=== PATIENT | female | born 1950 | race Caucasian/White ===

== ENCOUNTER 2020-09-18 06:09 | Day surgery (SDC) | payer OTHER ==
[2020-09-15 13:31] LABS: Basophils % 0.7 % (0-1.3); Hematocrit 42.3 % (36.0-45.0); Lymphocytes % 25.4 % (15.3-44.8); RBC Red Blood Cell Count 4.57 M/uL (3.86-4.86)
[2020-09-15 13:46] LABS: Potassium 3.9 mmol/L (3.5-5.1)
[2020-09-15 14:10] LABS: Urine Appearance CLEAR (Clear); Urine Bilirubin NEGATIVE (Negative); Urine Blood NEGATIVE (Negative); Urine Color YELLOW (Yellow); Urine Glucose NEGATIVE (Negative); Urine Protein NEGATIVE (Negative); Urine Specific Gravity <=1.005 (1.005-1.030); Urine Urobilinogen 0.2 mg/dL (0.2-1.0)
[2020-09-15 14:24] LABS: Urine Microscopic Reflex NO UMIC
[2020-09-18] MEDS ORDERED: SCOPOLAMINE HYDROBROMIDE PATCH TD ONE (06:49)
[2020-09-18] MEDS ORDERED: CEFAZOLIN/SWI 2gm 2 GM/20 ML SYR ONE (06:49)
[2020-09-18] MEDS ORDERED: Ringers Lactate 1,000 ML IV ONE ×2 (06:49→09:27)
[2020-09-18] MEDS ORDERED: LIDOCAINE 2% MPF 5 ML VIAL ONE (07:20)
[2020-09-18] MEDS ORDERED: propofoL 200 MG/20 ML VIAL IV ONE (07:20)
[2020-09-18] MEDS ORDERED: MIDAZOLAM HCL 2 MG/2 ML INJ ONE (07:20)
[2020-09-18] MEDS ORDERED: KETAMINE HCL 500 MG/5 ML VIAL ONE (07:20)
[2020-09-18] MEDS ORDERED: dexAMETHasone 10 MG/ML VIAL ONE (07:20)
[2020-09-18] MEDS ORDERED: ROCURONIUM 50 MG/5 ML VIAL IV ONE (07:20)
[2020-09-18] MEDS ORDERED: FENTANYL CITR 250 MCG/5 ML ONE (07:20)
[2020-09-18] MEDS ORDERED: NS 0.9% VIAL 10 ML ONE (07:20)
[2020-09-18] MEDS ORDERED: ONDANSETRON 4 MG/2 ML VIAL ONE (07:21)
[2020-09-18] MEDS ORDERED: NA CHLORIDE 0.9% 100 ML IV ONE (07:27)
[2020-09-18] MEDS ORDERED: CEFAZOLIN/SWI 1gm 1 GM/10 ML SYR ONE (07:27)
[2020-09-18] MEDS: VASOPRESSIN 20 UNIT/ML VIAL ONE ×2 (08:18→08:28)
[2020-09-18] MEDS ORDERED: EPHEDRINE SULF 50 MG/ML VIAL ONE (08:23)
[2020-09-18] MEDS ORDERED: MORPHINE 10 MG/ML VIAL ONE (12:02)
[2020-09-18] MEDS ORDERED: ONDANSETRON 4 MG/2 ML VIAL IV PRN (13:17)
[2020-09-18] MEDS ORDERED: PROMETHAZINE INJ 25 MG/ML AMP IV PRN (13:20)
[2020-09-18] MEDS ORDERED: PROMETHAZINE 25 MG TABLET PO PRN (13:20)
[2020-09-18] MEDS ORDERED: Ringers Lactate 1,000 ML IV SCH (14:00)
[2020-09-18 14:08] VITALS: BMI 22.8
[2020-09-18] MEDS: CEFAZOLIN/SWI 1gm 1 GM/10 ML SYR IV SCH (15:53)
[2020-09-18] MEDS: ACETAMINOPHEN 325 MG TABLET PO PRN (16:09)
[2020-09-18] MEDS: MORPHINE 4 MG/ML SYR IV PRN (21:00)
[2020-09-19] MEDS: CEFAZOLIN/SWI 1gm 1 GM/10 ML SYR IV SCH
[2020-09-19] MEDS ORDERED: CEFAZOLIN/SWI 1gm 1 GM/10 ML SYR ONE (00:07)
[2020-09-19] MEDS: ACETAMINOPHEN 325 MG TABLET PO PRN (06:25)
[2020-09-19] MEDS: MORPHINE 4 MG/ML SYR IV PRN (09:03)
[2020-09-19 14:38] VITALS: BP 101/48; TEMP 97.7
[2020-09-19 14:44] VITALS: O2SAT 98
--- NOTE | 2020-09-19 17:07 | OP ---
Date of Procedure: 09/18/2020 Surgeon: Saida Baron MD Culinary Artist: Maggy Winter. Preoperative Diagnoses: Anterior and posterior wall prolapse and occult stress urinary incontinence. Postoperative Diagnoses: Wall prolapse stage II, anterior-posterior compartment defects, leading def ect was wall prolapse, occult stress urinary incontinence, apical and posterior enterocele. Procedures Performed: Anterior repair with biologic graft and bilateral sacrospinous ligament fixati on, colpopexy through the anterior access, posterior repair, posterior enterocele repair, apical ente rocele repair perineorrhaphy, mid urethral sling through the transobturator approach (TVTO), cystosco py. Estimated Blood Loss: 100. Urine Output: 400. Anesthesia: General. Specimens: No specimens. Complications: No complications. Drains: Hwang catheter left in place and vaginal packing. Patient's Condition: Stable. Findings: POP-Q is as follows: -1, +1, 0, 5, moderate 7, 0+ 1, and nonapplicable. The anterior rep air was done with the biologic graft. Two Prolene sutures at the sacrospinous ligament and at the ap ex in the center. Three 2-0 Prolenes and 2 PDS sutures on the white line of the Capio and 3 PDS sutu res on the distal most anterior wall close to the urethrovesical junction. The posterior and anterio r wall were slightly trimmed and apical enterocele repair was done with a 3-0 Vicryl, posterior enter ocele repair done and the proximal rectovaginal septum was attempted to be reattached to the apex, ho wever, there was still a small apical posterior defect left due to the inability of rectovaginal sept um to be pulled as high as the sacrospinous towards the apex. However, there was satisfactory reduct ion of the posterior wall prolapse and excellent repair of the perineal body. Indications: The patient is a 69-year-old female with symptomatic vaginal prolapse, declined pessary and conservative management. She has tried Kegel's and pelvic floor muscle therapy . She decided to proceed with medical management. She has had a history of bulging for a little while and would like to get the prolapse surgically resolved. She was referred to me by Carissa Silva. Blood d some recurrent bladder infections, emptying difficulty and vaginal pressure . Did have s ome urgency symptoms. No fecal incontinence. Urodynamics were done, she was found to have occult PETER. We discussed about the mid urethral sling a nd she understood that this was synthetic sling. Biologic anterior repair versus sacral colpopexy wi th mesh were all reviewed. The patient wanted to proceed with a vaginal repair and she was taken to the OR. In the preop, her consent was redone and her and daughter were present. Description Of Procedure: After questions and answers were down satisfactorily, she was taken back. 2 g of Ancef were given. Placed in a supine fashion on the operating table. General anesthesia was given. She was placed in a dorsal lithotomy position using Slick stirrups. The vaginal exam was pe rformed and POP-Q as dictated in the findings. Lower abdomen, vulva, vagina, and perineum were prepp ed and draped in a sterile fashion. Hwang was placed to drain the bladder and retracted superiorly a fter clamping it. The anterior vaginal wall was picked up at 1 cm proximal to the urethrovesical janak ction. Then, at the vaginal vault, it was clear that the vault was the leading part of the prolapse. Then midline dilute vasopressin was injected. Incision was made, extended all the way to the super ior and proximal most aspects of the anterior wall. Bladder was dissected off. Paravaginal space wa s accessed on both sides. The sacrospinous ligament was dissected after reaching the ischial spine e ntering the pararectal space. By sweeping medial and posterior to the ischial spine, the sacrospinou s ligament complex was identified and isolated. Similar dissection on the opposite side as well. Th e bladder was taken off and it was very obvious that there was an apical enterocele. The apical ente rocele was dissected to the level of the vaginal apex as marked by the scar from the vaginal cuff. T hen here the enterocele was closed with the help of a 3-0 Vicryl in a pursestring fashion to reduce t his. The anterior wall was reattached to the vaginal apex. The bladder was dissected all the way do wn to the bladder neck. The fascia at the bladder neck was identified and this was the area to be sutured to the distal part of the biologic graft. The biologic graft was fashioned 8 cm interspinous anterior-posterior lying a t 6 cm, the distal margin at 5 cm. Three Prolene sutures were placed 2-0 at the apex and the center o n each side to tack the graft to the vaginal apex proximally and then the sacrospinous sutures with t he Capio were placed on the sacrospinous ligament 2 cm medial to the medial and posterior to the isch ial spine. These 2 Prolene sutures were attached with to either sides of the long end with a yaz stitch. The Prolene sutures were tied down. Then, the sacrospinous ligament sutures were also tied down. Two PDS sutures were placed with the Capio on the white line, 1 on each side about a centimete r and half from the ischial spine symmetrically on both sides. Then, these were not passed yet. The distal margin attachment was made. After measuring out at 6 cm, I had to trim it probably slightly. Three PDS sutures were placed in the midline to reattach to the pubocervical fascia whatever was le ft behind up through the connective tissue to the graft. Once this was done, the entire anterior com partment had excellent lift and support. The PDS sutures from the white line were attached at a prop er places on the vaginal graft after all these were fixed. Once these were tied down, the vaginal ep ithelium was trimmed with a Catherine clamp and then sutured with a 2-0 Vicryl in a continuous running lo cked fashion. Posterior compartment defect was repaired next. Allis clamps were placed at the level of the hymenal remnant. There was a small hymenal tag that had to be removed. Once this was done, then the sas sql developer ior compartment was injected with dilute vasopressin. The distal 1/3 was excised with a jossue-shap ed incision using a scalpel. Once the rectovaginal septum was exposed, the entire posterior compartm ent and rectovaginal septum were dissected away from the vaginal epithelium superiorly and laterally, also at the perineal body extending the incision to the perineum. The lateral aspects of the deep t ransverse perineum were all exposed. There was significant amount of scarring, however, the exposure was adequate. Then, all the way up and after the rectovaginal septum, at least about 5 cm of it was condensed and it was clear that there was a large posterior enterocele. Detachment from the apex wa s clear. So, the enterocele was repaired with the help of a pursestring suture to reduce it. Then, the rectovaginal septum or whatever the connective tissue was left was sutured to the apex or as high as possible with the help of a continuous running 2-0 PDS suture. Once this was done and there was good decompression of the posterior compartment, the levators there was 1 suture that I placed from s dane-to-side to pull it together. Then, perineal body reconstruction was done with a finger in the re ctum as well as the vagina. Three sutures were placed to bring this together. The gloves were holloway ed. All these sutures were tied together. There was excellent support and perineal body reconstruct ion. The genital hiatus was down to 3.5 cm. The posterior compartment trimmed the vaginal wall slightly laterally on the left side and then close d by pull-down technique. The vaginal epithelium was closed with the help of 2-0 Vicryl in a continu ous running horizontal mattress fashion from [id number] and the perineum was closed with the help o f 3-0 Vicryl in a subcutaneous and subcuticular fashion. Rectal exam was performed. No evidence of any trauma to the rectum at the sacrospinous sites or at the level of the perineal repair. Two Allis clamps were placed in the mid urethral area on the sides and injected with dilute vasopress in. A 1 cm incision was made in this area and dissection was performed onto the fascia to the ipsila teral obturator space. Once the obturator membrane was perforated, the track was expanded by pulling up the scissors were opened and then similar dissection on the opposite side as well hugging the inf erior pubic ramus. The wing guide TVTO was opened. The wing guide was placed. The spike was passed at an optimal angle and exited at the point 2 cm lateral to the groin crease at the line and about a centimeter and half above the level of the urethral meatus. Similar pass was taken on the opposite side without any problems. The sling was adjusted with the sosa Mahoney in the center in a tension-free manner. The plastic sheaths were pulled out and then the graft was adjusted and the mesh was cut at the groin incision carefully and the incisions were closed with the help of Dermabond. Central vaginal incision was closed with the help of . The p atient was closed with help of 2-0 Vicryl in a continuous running fashion. Once this was done, then proceeded with cystoscopy. The Hwang was removed. Cystoscopy was performed. There was no evidence o f any trauma or foreign body in the bladder, just the stone that this was seen in the preop cystoscop y. Both ureteric orifices had strong jets of urine from them. Bladder was drained Hwang was replace d. Vaginal packing was placed. The patient was recovered from anesthesia and taken to PACU in stable condition. FRANCIS/SALVATORE Voice ID: [id number] Report ID: [id number]
== END 2020-09-19 14:30 | disposition home or self-care (01) ==
LOC: OR 06:09 → 2ND-WC 11:50 → OR 09-19 14:30
PROVIDERS: ATTEND Obstetrics & Gynecology
PROC: 0USG7ZZ Reposition Vagina, Via Natural or Artificial Opening (ICD-10-PCS; 2020-09-18)
PROC: 0UUF0JZ Supplement Cul-de-sac with Synthetic Substitute, Open Approach (ICD-10-PCS; 2020-09-18)
PROC: 0JQC0ZZ Repair Pelvic Region Subcutaneous Tissue and Fascia, Open Approach (ICD-10-PCS; 2020-09-18)
PROC: 0HQ9XZZ Repair Perineum Skin, External Approach (ICD-10-PCS; 2020-09-18)
PROC: 0TSD0ZZ Reposition Urethra, Open Approach (ICD-10-PCS; principal; 2020-09-18 07:30)
DX: N81.12 Cystocele, lateral (principal); N81.6 Rectocele; N39.3 Stress incontinence (female) (male); I10 Essential (primary) hypertension; E78.00 Pure hypercholesterolemia, unspecified; M81.0 Age-related osteoporosis without current pathological fracture; N95.2 Postmenopausal atrophic vaginitis; N32.81 Overactive bladder; Z20.822 Contact with and (suspected) exposure to COVID-19
CPT/HCPCS: 57288; 57282; 57265; 57267; 85025; 80048; 36415; 86900; 86850; 85610; 86901; 85730; 81003; 94010; U0002; J2704; J2250; J3010; J1100; J0690 ×3; J7120 ×3; J2405

== ENCOUNTER 2022-05-29 11:49 | Emergency (ER) | payer OTHER ==
--- OUTSIDE RECORDS SUMMARY | 2022-05-29 11:52 | XMS REPORT | Continuity of Care Document ---
:1950 Author Organization [facility] t Address [address] [place] [address] Care Team Providers Name Role Phone Miller_S_AH Attending Clinician Unavailable Kalpana-Mbayo_A_AH Attending Clinician Unavailable Miller_S_AH Admitting Clinician Unavailable Kalpana-Mbayo_A_AH Admitting Clinician Unavailable Payers Payer Name Policy Type Policy Number Effective Date Expiration Date S ource [facility] [place] - [id number] 2019 [employer] 00:00:00 (MEDICARE REPLACEMENT/ADVANT AGE - HMO) Problems Condition Condition Condition Status Onset Resolution Last Treating Co mments Source Name Details Category Date Date Treatment Clinician Date Osteoporos Osteoporos Problem Active V ill[facility] is is 1-12 Family 00:00: Practic 00 e Senile Senile Problem Active 2019-03 [facility] purpura Purpura 2-21 Family 00:00: Practic 00 e Fall Fall Problem Active 2019-03 [facility] 0-08 Family 00:00: Practic 00 e Hyperchole Hyperchole Problem Active [facility] sterolemia sterolemia 7-06 Fa farrukh 00:00: Practic 00 e Essential Essential Problem Active Sophie quiana hypertensi Hypertensi 7-06 Fa farrukh on on 00:00: Practic 00 e Allergies, Adverse Reactions, Alerts Allergy Allergy Status Severity Reaction(s) Onset Inactive Treating Comm ents Source Name Type Date Date Clinician PENICILL Allergy Active Severe Anaphylaxis Vi llage INS to Family substanc Practic e e Social History Smoking Status Start Date Stop Date Source Former Smoker [facility] Medications Ordered Filled Start Stop Current Ordering Indication Dosage Frequency Signature Comments Components Source Medication Medication Date Date Medication? Clinician (SIG) Name Name atorvastati atorvastati No 1 Q1D atorvastat [place] n 10 mg n 10 mg in 10 mg Famil y tablet Take tablet Take tablet Practic 1 tablet 1 tablet Take 1 e every day every day tablet by oral by oral every day route. route. by oral route. lisinopril lisinopril No 1 Q1D lisinopril [facility] 20 20 20 Family mg-hydrochl mg-hydrochl mg-hydroch Practic orothiazide orothiazide lorothiazi e 12.5 mg 12.5 mg de 12.5 mg tablet Take tablet Take tablet 1 tablet 1 tablet Take 1 every day every day tablet by oral by oral every day route. route. by oral route. Vital Signs Vital Name Observation Time Observation Value Comments Source Height 2019-10-01 00:00:00 64 [in_i] [facility] BMI (Body Mass 2019-10-01 00:00:00 28.8 kg/m2 [facility]) Practice Body Weight 2019-10-01 00:00:00 168 [lb_av] [facility] Procedures This patient has no known procedures. Encounters Start End Encounter Admission Attending Care Care Encounter Source Date/Time Date/Time Type Type Clinicians Facility Department ID 2020-09-01 2020-09-01 Outpatient Miller_S_AH [facility] [address] [place] [address] 04:09:00 04:09:00 [id number] Family Practic e 2020-04-29 2020-04-29 Outpatient Kalpana-Shyanneo P [facility] [address] [place] [address] 02:55:00 02:55:00 _A_AH [id number] Family Practic e 2020-04-11 2020-04-11 Outpatient Kalpana-Shyanneo P [facility] [address] 05:34:00 05:34:00 _A_AH [id number] Family Practic e 2020-04-08 2020-04-08 Zhanna [facility] [place] - [id number] [facility] illage [facility]:00[facility] clint werner PALS NURSE: Medical - Practi c [email or web address], [address] [address], [place] [address] , Ph. 2020-01-15 2020-01-15 Outpatient Kalpana-Kvngayo P [facility] [id number] [facility] 09:28:00 09:28:00 _A_AH [id number] Family Practic e 2020-01-08 2020-01-08 Outpatient Kalpana-Mbayo [facility] [id number] [facility] 08:36:00 08:36:00 _A_AH [id number] Family Practic e 2020-01-03 2020-01-03 Zhanna [facility] [place] - [id number] V ill[place] 00:00:00 00:00:00 Ayo [facility] Nasir werner, PALS NURSE: Medical - Practi c [email or web address], [address] [address], [place] [address] , Ph. 2019-11-22 2019-11-22 Outpatient Kalpana-Mbayo [facility] [id number] [facility] 04:41:00 04:41:00 _A_AH [id number] Family Practic e 2019-11-14 2019-11-14 Outpatient Kalpana-Mbayo [facility] [id number] [facility] 10:07:00 10:07:00 _A_AH [id number] Family Practic e 2019-11-12 2019-11-12 Outpatient Kalpana-Mbayo [facility] [id number] [facility] 07:14:00 07:14:00 _A_AH [id number] Family Practic e 2019-11-07 2019-11-07 Outpatient Kalpana-Mbayo [facility] [id number] [facility] 06:45:00 06:45:00 _A_AH [id number] Family Practic e 2019-10-31 2019-10-31 Outpatient Kalpana-Mbayo [facility] [id number] [facility] 06:03:00 06:03:00 _A_AH [id number] Family Practic e 2019-10-05 2019-10-05 Outpatient Kalpana-Mbayo [facility] [id number] [facility] 01:40:00 01:40:00 _A_AH [id number] Family Practic e 2019-10-01 2019-10-01 Zhanna [facility] [place] - [id number] V illage 00:00:00 00:00:00 Ayo [facility] clint werner, PALS NURSE: Medical - Practi c [email or web address], [address] [address], [place] [address] , Ph. 2019-05-16 2019-05-16 [facility] [address] 07:20:00 07:20:00 _A_ [id number] Family Practic e Results Test Description Test Time Test Comments Results Result Sourc e Comments SCR MAMM 2018-09-26 - SCR MAMM BILATERAL BILATERAL ABE 09:42:18 ABE CAD CAD DIGITAL DIGITALBILATERAL DIGITAL SCREENING MAMMOGRAM 3D/2D WITH CAD: 09/21/2018CLINICAL: Asymptomatic. Digital breast tomosynthesis was performed in addition to routine CC and MLO views. Current mammographic images were evaluated by either a Ygle M-Vu or a niid.to ImageChecker CAD (computer aided detection system). Comparison is made to exams dated 02/10/2017 mammogram - [facility] and 05/08/2014 mammogram - [facility]. The tissue of both breasts is heterogeneously dense. This may lower the sensitivity of mammography. There are benign appearing scattered calcifications in both breasts. No suspicious mass, architectural distortion, malignant type calcification, or lymph node abnormality detected. Breast architecture is stable compared to prior exams.IMPRESSION: BENIGNThere is no mammographic evidence of malignancy. Resume annual screening mammography in one year. Nigel Ramires M.D. et/penrad:09/26/2018 09:42:18 Attending Technologist: Blanca Auguste MM, [facility] Technologist: Carol Marte MM, [facility]ographyletter sent: BIRADS 1-2 Normal Mammogram BI-RADS: 2 Benign
[2022-05-29] MEDS ORDERED: KETOROLAC 30 MG/ML INJ ONE (12:37)
[2022-05-29 12:53] LABS: Absolute Lymphocytes (CBC) 1.6 K/uL (0.7-4.9); Hematocrit 40.1 % (36.0-45.0); Lymphocytes % 19.6 % (15.3-44.8); MCV 93.4 fL (80-100); MPV 7.5 fL (7.6-11.3)
[2022-05-29 13:19] LABS: Potassium 3.8 mmol/L (3.5-5.1)
--- NOTE | 2022-05-29 13:44 | RAD REPORT ---
EXAM DESCRIPTION: CT - Head C Spine Cap W Reji - 05/29/2022 1:00 pm CLINICAL HISTORY: TRAUMA Trip and fall COMPARISON: No comparisons TECHNIQUE: Head and cervical spine CT images were obtained without IV contrast. Chest, abdomen, and pelvis CT images were obtained following intravenous administration of 90 mL Isovue-300. Multiplanar reformats were generated and reviewed. All CT scans are performed using dose optimization technique as appropriate and may include automated exposure control or mA/KV adjustment according to patient size. FINDINGS: CT HEAD: No intracranial hemorrhage, mass effect, or edema. No evidence of acute territorial infarct. No midli ne shift or abnormal fluid collection. The ventricles are normal in caliber and configuration for age . Basal cisterns are patent. Mastoid aircells are clear. Bilateral maxillary sinus small mucous reten tion cysts. No acute skull fracture. CT CERVICAL SPINE: No acute cervical spine fracture or subluxation. Vertebral body heights are well maintained. Facet cristina ints are normal in alignment. No hyperattenuating canal hematoma. Prevertebral and paraspinous soft t issues are unremarkable. CT CHEST: No pneumothorax, pulmonary contusion or pleural fluid collection. No mediastinal hematoma hematoma. P ulmonary arteries are unremarkable. Crescentic low density along the anterior wall of the ascending t horacic aorta (axial image 30/128 and sagittal image 119/219), difficult to evaluate in the presence of pulsation artifact, therefore a small dissection of indeterminate age versus mural hematoma cannot be entirely excluded. Subtle patchy ground-glass opacities in the left lingula, nonspecific, and cou ld reflect an infectious or inflammatory process. No chest will mass or abnormal axillary finding. No displaced rib fracture or other significant bony finding. CT ABDOMEN/ PELVIS: No evidence of traumatic injury to solid abdominal viscera. Incidentally noted left liver lobe subcap sular fluid density 3.3 centimeters cyst. Moderate hiatal hernia. Gallbladder is not well-visualized. May be surgically removed. Intra and extrahepatic Biliary tree are unremarkable. Left hypoattenuatin g 1 centimeter adrenal nodule, likely benign given size, not well characterized. No bowel injury or s ignificant finding. No free air, free fluid or abnormal fat stranding. No urinary bladder abnormality . No significant bony finding. IMPRESSION: No significant CT Head or cervical spine traumatic findings. Crescentic fluid density abnormality along the anterior wall of the ascending thoracic aorta, could b e related to motion artifact, versus small dissection of indeterminate age or mural hematoma. No othe r suspicious traumatic findings in the chest. Subtle patchy left lingular ground-glass opacities, cou ld reflect early pneumonia. No acute traumatic abdominopelvic finding. Incidental findings as above. The findings were communicated to Katherine Umaña MD on 05/29/2022 at 13:40 hours.
--- NOTE | 2022-05-29 14:09 | EDPHYS ---
Physician Documentation [facility] Name: Chrissy Dempsey Age: 71 yrs Sex: Female : 1950 Arrival Date: 05/29/2022 Time: 11:52 Bed 2 Private MD: Carissa Hawley ED Physician Katherine Umaña HPI: 05/29 12:31 This 71 yrs old Female presents to ER via Wheelchair with complaints of Fall Injury. sp3 12:31 81-year-old female with history of hypertension and osteoporosis presents with sp3 mechanical ground-level fall from tripping approximately 1 hour prior to arrival. Primary pain is in the right chest wall extending into the right upper quadrant of her abdomen as well as the right forehead/temporal area. There was no loss of consciousness and patient denies any facial pain, neck pain, left-sided pain, back pain, dizziness, syncope or near syncope, focal neurodeficit, bleeding, confusion, or any other findings on ROS at this time. Trauma alert activation was called after patient arrived into the room.. Historical: - Allergies: 12:25 PENICILLINS; ss 12:25 Darvon; ss - PMHx: 12:25 Osteoporosis; Hypertensive disorder; high cholesterol; ss - Immunization history:: Adult Immunizations unknown. - Immunization history: Last tetanus immunization: unknown. - Social history:: Smoking status: unknown. ROS: 12:32 Constitutional: Negative for fever, chills, and weight loss, Eyes: Negative for injury, sp3 pain, redness, and discharge, ENT: Negative for injury, pain, and discharge, Neck: Negative for injury, pain, and swelling, Cardiovascular: Negative for chest pain, palpitations, and edema, Back: Negative for injury and pain, Skin: Negative for injury, rash, and discoloration, Neuro: Negative for headache, weakness, numbness, tingling, and seizure. 12:32 All other systems are negative. Exam: 12:33 Constitutional: This is a well developed, well nourished patient who is awake, alert, sp3 and in no acute distress. Eyes: Pupils equal round and reactive to light, extra-ocular motions intact. Lids and lashes normal. Conjunctiva and sclera are non-icteric and not injected. Cornea within normal limits. Periorbital areas with no swelling, redness, or edema. ENT: Nares patent. No nasal discharge, no septal abnormalities noted. External auditory canals are clear. Oropharynx with no redness, swelling, or masses, exudates, or evidence of obstruction, uvula midline. Mucous membranes moist. Neck: Trachea midline, no thyromegaly or masses palpated, and no cervical lymphadenopathy. Supple, full range of motion without nuchal rigidity, or vertebral point tenderness. No Meningismus. Cardiovascular: Regular rate and rhythm with a normal S1 and S2. No gallops, murmurs, or rubs. Normal PMI, no JVD. No pulse deficits. Respiratory: Lungs have equal breath sounds bilaterally, clear to auscultation and percussion. No rales, rhonchi or wheezes noted. No increased work of breathing, no retractions or nasal flaring. Back: No spinal tenderness. No costovertebral tenderness. Full range of motion. Skin: Warm, dry with normal turgor. Normal color with no rashes, no lesions, and no evidence of cellulitis. MS/ Extremity: Pulses equal, no cyanosis. Neurovascular intact. Full, normal range of motion. Neuro: Awake and alert, GCS 15, oriented to person, place, time, and situation. Cranial nerves II-XII grossly intact. Motor strength 5/5 in all extremities. Sensory grossly intact. Cerebellar exam normal. Normal gait. Psych: Awake, alert, with orientation to person, place and time. Behavior, mood, and affect are within normal limits. 12:33 Head/face: Patient is a right [place] area of her forehead and mild swelling noted.. 12:33 Chest/axilla: Ribs on the right side tender to palpation with right upper quadrant abdominal pain as well. No peritoneal signs. Blood pressure is normal.. Vital Signs: 12:15 BP 148 / 75; Pulse 81; Resp 18; Temp 98.4(TE); Pulse Ox 99% on R/A; Weight 68.04 kg; ss Height 5 ft. 3 in. (160.02 cm); Pain 0/10; 12:30 BP 144 / 76; Pulse 97; Resp 16; Pulse Ox 98% on R/A; vg1 13:26 BP 127 / 76; Pulse 70; Resp 16; Pulse Ox 100% on R/A; vg1 14:37 BP 136 / 81; Pulse 70; Resp 17; Pulse Ox 100% ; kr3 12:15 Body Mass Index 26.57 (68.04 kg, 160.02 cm) ss [place] Coma Score: 12:15 Eye Response: spontaneous(4). Verbal Response: oriented(5). Motor Response: obeys ss commands(6). Total: 15. 12:30 Eye Response: spontaneous(4). Verbal Response: oriented(5). Motor Response: obeys vg1 commands(6). Total: 15. 13:26 Eye Response: spontaneous(4). Verbal Response: oriented(5). Motor Response: obeys vg1 commands(6). Total: 15. Trauma Score (Adult): 12:15 Eye Response: spontaneous(1); Verbal Response: oriented(1); Motor Response: obeys ss commands(2); Systolic BP: > 89 mm Hg(4); Respiratory Rate: 10 to 29 per min(4); [place] Score: 15; Trauma Score: 12 12:30 Eye Response: spontaneous(1); Verbal Response: oriented(1); Motor Response: obeys vg1 commands(2); Systolic BP: > 89 mm Hg(4); Respiratory Rate: 10 to 29 per min(4); [place] Score: 15; Trauma Score: 12 13:26 Eye Response: spontaneous(1); Verbal Response: oriented(1); Motor Response: obeys vg1 commands(2); Systolic BP: > 89 mm Hg(4); Respiratory Rate: 10 to 29 per min(4); [place] Score: 15; Trauma Score: 12 MDM: 12:22 Patient medically screened. sp3 12:34 Data reviewed: vital signs, nurses notes, lab test result(s), radiologic studies. ED sp3 course: 71-year-old female with mechanical ground-level fall with trauma activation. Given her head injury, right-sided chest and abdominal pain, full trauma protocol will be ordered. This consist of CT scans of the head, C-spine, chest, abdomen and pelvis. Patient likely has broken or contused rib on the right side. If work-up is negative for significant trauma injury, will treat pain and discharge patient home with conservative management. Patient is okay with the plan and has no further questions at this time. Disposition pending work-up and final CT scan reads.. 14:05 ED course: CT findings with patient. Discussed the aortic finding which is likely sp3 motion artifact but could possibly represent something else. I went through options with patient including repeating the study today, following up with her physician and repeating it as an outpatient, or not doing anything and repeating it if patient develops symptoms such as abdominal pain, new back pain, or syncope. Patient elects to be discharged at this time and repeat study through her primary care physician at a later date. I have also communicated that she may return here at any time if she changes her mind. From a trauma standpoint there is no liver or lung injury and no demonstrated rib fractures. Her diagnosis will be contused rib and we will discharge her home on NSAIDs and have counseled her on the need for Lasix and spirometry. Patient verbalized understanding and will be discharged at this time. Laboratory values are all normal.. 05/29 12:23 Order name: Basic Metabolic Panel sp3 05/29 12:23 Order name: CBC with Diff sp3 05/29 12:23 Order name: Type And Screen sp3 05/29 12:23 Order name: CT Traumagram (Head C Spine CAP W Con) sp3 05/29 12:23 Order name: Labs collected and sent; Complete Time: 12:49 sp3 05/29 12:23 Order name: IV Saline Lock; Complete Time: 12:49 sp3 05/29 12:23 Order name: NPO; Complete Time: 12:49 sp3 05/29 12:54 Order name: CBC with Automated Diff; Complete Time: 13:58 EDMS 05/29 13:19 Order name: Basic Metabolic Panel; Complete Time: 13:58 EDMS 05/29 13:39 Order name: Type and Screen; Complete Time: 13:58 EDMS 05/29 13:44 Order name: CT; Complete Time: 13:58 EDMS Administered Medications: 13:11 Drug: Ketorolac 15 mg Route: IVP; Site: left antecubital; vg1 14:40 Follow up: Response: No adverse reaction kr3 Disposition Summary: 05/29/22 14:08 Discharge Ordered Location: Home sp3 Condition: Stable sp3 Diagnosis - Chest wall contusion, rib contusion sp3 Followup: sp3 - With: Private Physician - When: Upon discharge from the Emergency Department - Reason: Further diagnostic work-up Discharge Instructions: - Discharge Summary Sheet sp3 - Rib Contusion sp3 Forms: - Medication Reconciliation Form sp3 - Thank You Letter sp3 - Antibiotic Education sp3 - Prescription Opioid Use sp3 Prescriptions: - Diclofenac Sodium 75 mg Oral Tablet Sustained Release - take 1 tablet by ORAL route 2 times per day; 30 tablet; Refills: 0, Product sp3 Selection Permitted Signatures: Dispatcher [employer] EDDennise Willams RN RN ss Joelle Smith RN RN vg1 Katherine Umaña MD MD sp3 Linda Doshi RN RN kr3 Corrections: (The following items were deleted from the chart) 12:26 12:25 Allergies: PCN; ss ss
--- NOTE | 2022-05-29 14:09 | ER ---
Nurse's Notes [facility] Name: Chrissy Dempsey Age: 71 yrs Sex: Female : 1950 Arrival Date: 05/29/2022 Time: 11:52 Bed 2 Private MD: Carissa Hawley Diagnosis: Chest wall contusion, rib contusion Presentation: 05/29 12:15 Chief complaint: Patient states: tripped and fell from standing 1 hour ago. Pt c/o pain ss under R breast, R lateral chest wall. Pt states she did hit her head. No LOC. Care prior to arrival: None. Mechanism of Injury: Fall from standing position. Trauma event details: Injury occurred in the [facility]. 12:15 Acuity: MARV 2 ss 12:15 Method Of Arrival: Wheelchair ss 12:15 Coronavirus screen: Client denies travel out of the [place] in the last 14 days. Ebola ss Screen: Patient denies exposure to infectious person. Patient denies travel to an Ebola-affected area in the 21 days before illness onset. Initial Sepsis Screen: Does the patient meet any 2 criteria? No. Patient's initial sepsis screen is negative. Does the patient have a suspected source of infection? No. Patient's initial sepsis screen is negative. Risk Assessment: Do you want to hurt yourself or someone else? Patient reports no desire to harm self or others. Onset of symptoms was May 29, 2022. Trauma Activation: Alert Physician: ED Physician; Name: ; Notified At: ; Arrived At: Physician: General Surgeon; Name: ; Notified At: ; Arrived At: Physician: Radiology; Name: ; Notified At: ; Arrived At: Physician: Respiratory; Name: ; Notified At: ; Arrived At: Physician: Lab; Name: ; Notified At: ; Arrived At: Historical: - Allergies: 12:25 PENICILLINS; ss 12:25 Darvon; ss - PMHx: 12:25 Osteoporosis; Hypertensive disorder; high cholesterol; ss - Immunization history:: Adult Immunizations unknown. - Immunization history: Last tetanus immunization: unknown. - Social history:: Smoking status: unknown. Screenin:15 Abuse screen: Denies threats or abuse. Denies injuries from another. Tuberculosis ss screening: No symptoms or risk factors identified. 12:30 [facility] ED Fall Risk Assessment (Adult) History of falling in the last 3 months, vg1 including since admission Yes- single mechanical fall (1 pt) Confusion or Disorientation No (0 pts) Intoxicated or Sedated No (0 pts) Impaired Gait No (0 pts) Mobility Assist Device Used No (0 pt) Altered Elimination No (0 pt) Score/Fall Risk Level 0 - 2 = Low Risk Oriented to surroundings, Maintained a safe environment, Educated pt \T\ family on fall prevention, incl call for assistance when getting out of bed, Assessed \T\ reinforced patient's understanding of fall precautions. Nutritional screening: No deficits noted. Primary Survey: 12:15 NO uncontrolled hemorrhage observed. A: The client is awake and alert. The airway is ss patent. The client is alert. Airway: patent. Breathing/Chest: Spontaneous respiratory effort, equal unlabored respirations, breath sounds clear bilaterally, regular pattern, symmetrical chest rise and fall. Respiratory effort: spontaneous, unlabored. Circulation: No external hemorrhage present. Regular and strong central pulse, skin warm/dry/normal color. Disability Pupils are equal, round, reactive to light and accommodation. Client is alert. Exposure/Environment: All clothing and personal items were removed. Forensic evidence collection is not deemed to be indicated at this time. Items placed in patient belonging bag. There is no evidence of uncontrolled external bleeding. No obvious injuries are noted at this time. 12:30 Reassessment Alertness and Airway: Awake and alert. The airway is patent. Breathing: vg1 Spontaneous respiratory effort, equal unlabored respirations, breath sounds clear bilaterally, regular pattern with symmetrical chest rise and fall. Respiratory effort Spontaneous Circulation: No external hemorrhage noted. Regular and strong central pulse, skin warm/dry/normal color. Color [employer] Disability: Alert. Secondary Survey: 12:30 HEENT: No deficits noted. Head No injury/deformity. Gastrointestinal: No deficits vg1 noted. Abdomen is soft. : No signs and/or symptoms were reported regarding the genitourinary system. Musculoskeletal: Reports pain in right arm, right side of ribs. Assessment: 12:15 General: Appears in no apparent distress. Behavior is calm, cooperative. Neuro: Level ss of Consciousness is awake, alert, obeys commands. Respiratory: Respiratory effort is even, unlabored. 12:15 General: Appears uncomfortable. ss 12:30 General: Appears in no apparent distress. uncomfortable, Behavior is calm, cooperative. vg1 Pain: Complains of pain in Right side of ribs, Right arm Pain currently is 0 out of 10 on a pain scale. at worst was 10 out of 10 on a pain scale. Pain began 1 hour ago. Aggravated by repositioning, coughing. Neuro: Level of Consciousness is awake, alert, obeys commands, Oriented to person, place, time, situation, Denies blurred vision dizziness, headache. Cardiovascular: Patient's skin is warm and dry. GI: Patient currently denies nausea, vomiting. : No signs and/or symptoms were reported regarding the genitourinary system. EENT: No signs and/or symptoms were reported regarding the EENT system. Derm: Skin is pink, warm \T\ dry. Musculoskeletal: Circulation, motion, and sensation intact. 12:47 Reassessment: Pt transported to CT via stretcher. vg1 13:25 Reassessment: Patient appears in no apparent distress at this time. No changes from vg1 previously documented assessment. Patient and/or family updated on plan of care and expected duration. Pain level reassessed. Patient is alert, oriented x 3, equal unlabored respirations, skin warm/dry/pink. 14:36 Reassessment: Patient appears in no apparent distress at this time. Patient and/or kr3 family updated on plan of care and expected duration. Pain level reassessed. Patient is alert, oriented x 3, equal unlabored respirations, skin warm/dry/pink. Vital Signs: 12:15 BP 148 / 75; Pulse 81; Resp 18; Temp 98.4(TE); Pulse Ox 99% on R/A; Weight 68.04 kg; ss Height 5 ft. 3 in. (160.02 cm); Pain 0/10; 12:30 BP 144 / 76; Pulse 97; Resp 16; Pulse Ox 98% on R/A; vg1 13:26 BP 127 / 76; Pulse 70; Resp 16; Pulse Ox 100% on R/A; vg1 14:37 BP 136 / 81; Pulse 70; Resp 17; Pulse Ox 100% ; kr3 12:15 Body Mass Index 26.57 (68.04 kg, 160.02 cm) [place] Coma Score: 12:15 Eye Response: spontaneous(4). Verbal Response: oriented(5). Motor Response: obeys ss commands(6). Total: 15. 12:30 Eye Response: spontaneous(4). Verbal Response: oriented(5). Motor Response: obeys vg1 commands(6). Total: 15. 13:26 Eye Response: spontaneous(4). Verbal Response: oriented(5). Motor Response: obeys vg1 commands(6). Total: 15. Trauma Score (Adult): 12:15 Eye Response: spontaneous(1); Verbal Response: oriented(1); Motor Response: obeys ss commands(2); Systolic BP: > 89 mm Hg(4); Respiratory Rate: 10 to 29 per min(4); [place] Score: 15; Trauma Score: 12 12:30 Eye Response: spontaneous(1); Verbal Response: oriented(1); Motor Response: obeys vg1 commands(2); Systolic BP: > 89 mm Hg(4); Respiratory Rate: 10 to 29 per min(4); [place] Score: 15; Trauma Score: 12 13:26 Eye Response: spontaneous(1); Verbal Response: oriented(1); Motor Response: obeys vg1 commands(2); Systolic BP: > 89 mm Hg(4); Respiratory Rate: 10 to 29 per min(4); [place] Score: 15; Trauma Score: 12 ED Course: 11:52 Patient arrived in ED. mr 11:52 Carissa Hawley is Private Physician. mr 12:10 Katherine Umaña MD is Attending Physician. sp3 12:11 Joelle Smith, RN is Primary Nurse. vg1 12:15 Patient has correct armband on for positive identification. ss 12:22 Triage completed. ss 12:25 Arm band placed on right wrist. ss 12:30 Patient maintains SpO2 saturation greater than 95% on room air. vg1 12:42 No provider procedures requiring assistance completed. Initial lab(s) drawn, by tx, vg1 sent to lab. Inserted saline lock: 20 gauge in left antecubital area, using aseptic technique. Blood collected. 12:56 Thermoregulation: warm blanket given to patient. vg1 14:37 IV discontinued, intact, bleeding controlled, No redness/swelling at site. Pressure kr3 dressing applied. Administered Medications: 13:11 Drug: Ketorolac 15 mg Route: IVP; Site: left antecubital; vg1 14:40 Follow up: Response: No adverse reaction kr3 Medication: 14:39 VIS not applicable for this client. kr3 Intake: 14:39 PO: 0ml; Total: 0ml. kr3 Outcome: 14:08 Discharge ordered by . sp3 14:38 Discharged to home ambulatory. kr3 14:38 Condition: stable 14:38 Discharge instructions given to patient, Instructed on discharge instructions, follow up and referral plans. medication usage, Demonstrated understanding of instructions, follow-up care, medications, Prescriptions given X 1. 14:39 Patient's length of stay was not longer than 2 hours. kr3 14:40 Patient left the ED. kr3 Signatures: Yao Marcy mr Dennise Hernandez RN RN ss Joelle Smith RN RN vg1 Katherine Umaña MD MD sp3 Linda Doshi RN RN kr3 Corrections: (The following items were deleted from the chart) 12:26 12:25 Allergies: PCN; ss ss
[2022-05-29 15:24] VITALS: TEMP 98.4
[2022-05-29 15:26] VITALS: BP 144/76; O2SAT 98
== END 2022-05-29 14:40 | disposition home or self-care (01) ==
LOC: ER 11:49
DX: S20.211A Contusion of right front wall of thorax, initial encounter (principal); I10 Essential (primary) hypertension; Z88.0 Allergy status to penicillin; Z88.5 Allergy status to narcotic agent
CPT/HCPCS: 85025; 80048; 36415; 86900; 86850; 86901; 70450; 72125; 71260; 74177; 96374; 99284; Q9967